=== PATIENT | male | born 1935 | race Caucasian/White ===

== ENCOUNTER 2022-05-16 10:11 | Inpatient (IN) | payer MEDICARE ==
[~2022-05-16] VITALS: Ht 165.1 cm; Wt 59.2 kg
[2022-05-16] MEDS ORDERED: SODIUM CHLORIDE 0.9% 1000ML 1,000 ML IV STA (11:13)
[2022-05-16 11:30] LABS: BASOPHILS % 0.2 % (0.0-1.0); HEMATOCRIT 40.1 % (38.2-49.6); HEMOGLOBIN 12.2 g/dL (14.0-18.0); LYMPHOCYTES # (AUTO) 0.5 (1.0-3.2); LYMPHOCYTES % 5.2 % (18.0-39.1); MEAN CORPUSCULAR HEMOGLOBIN 30.5 pg (28-32); MEAN CORPUSCULAR HGB CONC 30.4 g/dL (31-35); MEAN CORPUSCULAR VOLUME 100.3 fL (81-99); MONOCYTES # (AUTO) 0.4 (0.2-0.8); MONOCYTES % 3.5 % (4.4-11.3); NEUTROPHILS # (AUTO) 9.3 (2.1-6.9); NEUTROPHILS % 90.8 % (38.7-80.0); PLATELET COUNT 349 x10e3/uL (140-360); RED CELL DISTRIBUTION WIDTH 13.4 % (11.7-14.4)
[2022-05-16 11:37] LABS: INR 1.09; PROTHROMBIN TIME 15.1 seconds (11.9-14.5)
[2022-05-16 11:46] LABS: ALBUMIN 3.5 g/dL (3.5-5.0); ALBUMIN/GLOBULIN RATIO 0.7 (0.8-2.0); ANION GAP 22.7 mmol/L (8-16); CALCIUM 9.7 mg/dL (8.4-10.2); CREATININE, SERUM 5.57 mg/dL (0.72-1.25); MAGNESIUM 2.8 MG/DL (1.3-2.1); POTASSIUM 4.7 mmol/L (3.5-5.1)
[2022-05-16 12:00] LABS: CLARITY,URINE TURBID (CLEAR); COLOR,URINE YELLOW (YELLOW); LEUKOCYTE ESTERASE ,URINE NEGATIVE (NEGATIVE); NITRITE,URINE NEGATIVE (NEGATIVE); PROTEIN,URINE DIPSTICK 2+ (NEGATIVE)
[2022-05-16] MEDS ORDERED: SODIUM CHLORIDE 0.9% 1000ML 1,000 ML IV SCH (12:00)
[2022-05-16] MEDS ORDERED: ACETAMINOPHEN 650 MG SUPP PR ONE (12:00)
[2022-05-16] MEDS ORDERED: ACETAMINOPHEN 325 MG TAB PO ONE ×2 (12:00)
[2022-05-16 12:01] LABS: KETONES,URINE TRACE (NEGATIVE); URINE UROBILINOGEN 0.2 mg/dL (0.2 - 1)
[2022-05-16 12:15] LABS: CREATINE KINASE MB 1.9 ng/mL (0-5.0)
[2022-05-16 12:22] LABS: BACTERIA,URINE MANY /HPF; EPITHELIAL CELLS,URINE FEW /LPF; RBC,URINE >50 /HPF (0-5); WBC,URINE (MAN) 0-5 /HPF (0-5)
[2022-05-16] MEDS ORDERED: DEXTROSE 5% 1,000 ML IV SCH (13:15)
[2022-05-16] MEDS ORDERED: ONDANSETRON HCL INJ 2MG/ML 2ML 2 MG/ML VIAL IV PRN (13:15)
[2022-05-16] MEDS ORDERED: LIDOCAINE HCL 1% LOCAL INJ 20 ML VIAL ONE (14:12)
[2022-05-16] MEDS ORDERED: HEPARIN SOD (PORCINE) 1000 UNIT/ML SDV ONE (15:40)
[2022-05-16] MEDS ORDERED: DEXTROSE 50% SYRINGE 50 ML IV PRN (15:45)
[2022-05-16] MEDS ORDERED: SODIUM CHLORIDE 0.9% 1000ML 2,000 ML IV PRN (16:30)
[2022-05-16] MEDS ORDERED: MANNITOL 25% 12.5GM/50 ML VIAL IV PRN (16:30)
[2022-05-16] MEDS ORDERED: HEPARIN SOD (PORCINE) 1000 UNIT/ML SDV IV PRN (16:30)
[2022-05-16] MEDS ORDERED: INSULIN REGULAR, HUMAN 100 UNIT/1 ML SQ SCH (16:30)
[2022-05-16 18:15] VITALS: BP 140/84
[2022-05-16 18:43] LABS: CREATINE KINASE MB 4.5 ng/mL (0-5.0)
[2022-05-16 20:00] VITALS: BP 107/70
[2022-05-16] MEDS ORDERED: CLOPIDOGREL75 MG PO (20:41)
[2022-05-16] MEDS ORDERED: LIPITOR20 MG PO (20:41)
[2022-05-16 21:00] VITALS: BP 107/70
[2022-05-16] MEDS ORDERED: SODIUM CHLORIDE 0.9% 250ML 250 ML ONE (22:44)
[2022-05-17] VITALS (8 sets, daily range): BP systolic 108–134; BP diastolic 57–82
[2022-05-17 06:02] LABS: BASOPHILS % 0.2 % (0.0-1.0); EOSINOPHILS % 0.2 % (0.0-6.0); HEMATOCRIT 33.7 % (38.2-49.6); HEMOGLOBIN 10.9 g/dL (14.0-18.0); LYMPHOCYTES # (AUTO) 0.7 (1.0-3.2); LYMPHOCYTES % 5.4 % (18.0-39.1); MEAN CORPUSCULAR HEMOGLOBIN 30.7 pg (28-32); MEAN CORPUSCULAR HGB CONC 32.3 g/dL (31-35); MEAN CORPUSCULAR VOLUME 94.9 fL (81-99); MONOCYTES # (AUTO) 0.3 (0.2-0.8); MONOCYTES % 2.3 % (4.4-11.3); NEUTROPHILS # (AUTO) 11.6 (2.1-6.9); NEUTROPHILS % 91.3 % (38.7-80.0); PLATELET COUNT 293 x10e3/uL (140-360); RED BLOOD COUNT 3.55 x10e6/uL (4.3-5.7); RED CELL DISTRIBUTION WIDTH 13.3 % (11.7-14.4)
[2022-05-17 06:39] LABS: ALBUMIN 2.9 g/dL (3.5-5.0); ALBUMIN/GLOBULIN RATIO 0.8 (0.8-2.0); ANION GAP 20.4 mmol/L (8-16); CALCIUM 8.5 mg/dL (8.4-10.2); CREATININE, SERUM 3.67 mg/dL (0.72-1.25); POTASSIUM 4.4 mmol/L (3.5-5.1)
[2022-05-17 07:07] LABS: CREATINE KINASE MB 5.6 ng/mL (0-5.0)
[2022-05-17 07:23] LABS: CHOL/HDL RATIO 3.6 (3.9-4.7)
[2022-05-17] MEDS ORDERED: HEPARIN SOD (PORCINE) 1000 UNIT/ML SDV IV PRN (09:15)
[2022-05-17] MEDS ORDERED: DEXTROSE 5% 2,000 ML IV PRN (09:15)
[2022-05-17] MEDS ORDERED: SODIUM CHLORIDE 0.9% 500ML 500 ML ONE (15:57)
[2022-05-17] MEDS: DEXTROSE 5% 1,000 ML IV SCH (18:02)
[2022-05-18] VITALS (9 sets, daily range): BP systolic 94–115; BP diastolic 48–71
[2022-05-18 06:30] LABS: BASOPHILS % 0.1 % (0.0-1.0); EOSINOPHILS % 0.2 % (0.0-6.0); HEMATOCRIT 31.6 % (38.2-49.6); HEMOGLOBIN 9.9 g/dL (14.0-18.0); LYMPHOCYTES # (AUTO) 0.8 (1.0-3.2); LYMPHOCYTES % 5.3 % (18.0-39.1); MEAN CORPUSCULAR HEMOGLOBIN 30.6 pg (28-32); MEAN CORPUSCULAR HGB CONC 31.3 g/dL (31-35); MEAN CORPUSCULAR VOLUME 97.5 fL (81-99); MONOCYTES # (AUTO) 0.4 (0.2-0.8); MONOCYTES % 2.7 % (4.4-11.3); NEUTROPHILS # (AUTO) 12.9 (2.1-6.9); NEUTROPHILS % 91.1 % (38.7-80.0); PLATELET COUNT 254 x10e3/uL (140-360); RED BLOOD COUNT 3.24 x10e6/uL (4.3-5.7); RED CELL DISTRIBUTION WIDTH 13.1 % (11.7-14.4)
[2022-05-18 06:50] LABS: ALBUMIN 2.6 g/dL (3.5-5.0); ALBUMIN/GLOBULIN RATIO 0.8 (0.8-2.0); ANION GAP 13.9 mmol/L (8-16); CALCIUM 8.2 mg/dL (8.4-10.2); CREATININE, SERUM 3.1 mg/dL (0.72-1.25); POTASSIUM 3.9 mmol/L (3.5-5.1)
[2022-05-18] MEDS: ALBUTEROL/IPRATROPIUM 3 ML NEB NEB PRN (20:15)
[2022-05-18] MEDS: ALBUTEROL/IPRATROPIUM 3 ML NEB NEB SCH (23:50)
[2022-05-19] VITALS (7 sets, daily range): BP systolic 113–130; BP diastolic 58–71
[2022-05-19] MEDS: DEXTROSE 5% 1,000 ML IV SCH (01:14)
[2022-05-19 06:31] LABS: EOSINOPHILS # (AUTO) 0.1 (0.0-0.4); EOSINOPHILS % 0.5 % (0.0-6.0); HEMATOCRIT 30.2 % (38.2-49.6); HEMOGLOBIN 9.5 g/dL (14.0-18.0); LYMPHOCYTES # (AUTO) 0.5 (1.0-3.2); LYMPHOCYTES % 4.5 % (18.0-39.1); MEAN CORPUSCULAR HEMOGLOBIN 30.8 pg (28-32); MEAN CORPUSCULAR HGB CONC 31.5 g/dL (31-35); MEAN CORPUSCULAR VOLUME 98.1 fL (81-99); MONOCYTES # (AUTO) 0.4 (0.2-0.8); MONOCYTES % 3.8 % (4.4-11.3); NEUTROPHILS # (AUTO) 10.6 (2.1-6.9); NEUTROPHILS % 90.7 % (38.7-80.0); PLATELET COUNT 234 x10e3/uL (140-360); RED BLOOD COUNT 3.08 x10e6/uL (4.3-5.7)
[2022-05-19 06:52] LABS: ANION GAP 16.8 mmol/L (8-16); CREATININE, SERUM 3.24 mg/dL (0.72-1.25); POTASSIUM 3.8 mmol/L (3.5-5.1)
[2022-05-19] MEDS: ALBUTEROL/IPRATROPIUM 3 ML NEB NEB PRN (09:20)
[2022-05-19] MEDS: BUMETANIDE INJ 0.25MG/ML 4ML VIAL IV ONE ×2 (11:21→16:33)
[2022-05-19] MEDS ORDERED: BUMETANIDE INJ 0.25MG/ML 4ML VIAL IV ONE (11:45)
[2022-05-19] MEDS ORDERED: ALBUTEROL/IPRATROPIUM 3 ML NEB NEB PRN (12:15)
[2022-05-19] MEDS: ALBUTEROL/IPRATROPIUM 3 ML NEB NEB SCH ×2 (15:10→19:15)
[2022-05-20] VITALS (8 sets, daily range): BP systolic 99–145; BP diastolic 50–73
[2022-05-20] MEDS: ALBUTEROL/IPRATROPIUM 3 ML NEB NEB SCH ×3 (02:35→10:10)
[2022-05-20 06:34] LABS: BASOPHILS % 0.3 % (0.0-1.0); EOSINOPHILS % 0.3 % (0.0-6.0); HEMOGLOBIN 10.3 g/dL (14.0-18.0); LYMPHOCYTES # (AUTO) 0.4 (1.0-3.2); LYMPHOCYTES % 2.2 % (18.0-39.1); MEAN CORPUSCULAR HEMOGLOBIN 30.8 pg (28-32); MEAN CORPUSCULAR HGB CONC 32.2 g/dL (31-35); MEAN CORPUSCULAR VOLUME 95.8 fL (81-99); MONOCYTES # (AUTO) 0.6 (0.2-0.8); MONOCYTES % 3.5 % (4.4-11.3); NEUTROPHILS # (AUTO) 14.8 (2.1-6.9); NEUTROPHILS % 92.8 % (38.7-80.0); PLATELET COUNT 247 x10e3/uL (140-360); RED BLOOD COUNT 3.34 x10e6/uL (4.3-5.7); RED CELL DISTRIBUTION WIDTH 12.6 % (11.7-14.4)
[2022-05-20 06:53] LABS: ALBUMIN 2.7 g/dL (3.5-5.0); ALBUMIN/GLOBULIN RATIO 0.7 (0.8-2.0); ANION GAP 27.2 mmol/L (8-16); CALCIUM 8.4 mg/dL (8.4-10.2); CREATININE, SERUM 4.71 mg/dL (0.72-1.25); POTASSIUM 4.2 mmol/L (3.5-5.1)
[2022-05-20] MEDS ORDERED: HEPARIN SOD (PORCINE) 1000 UNIT/ML SDV IV PRN ×2 (10:00)
[2022-05-20] MEDS ORDERED: SODIUM CHLORIDE 0.9% 1000ML 2,000 ML IV PRN (10:00)
[2022-05-20] MEDS: ACETAMINOPHEN 325 MG TAB PO PRN (10:13)
[2022-05-20 14:20] LABS: ALBUMIN 2.2 g/dL (3.5-5.0); BILIRUBIN,DIRECT 0.5 mg/dL (0.0-0.5)
[2022-05-20] MEDS ORDERED: ALBUTEROL SULF 0.083% NEB SOLN 3 ML NEB NEB PRN (14:30)
[2022-05-20] MEDS: SODIUM BICARBONATE 650 MG TAB PO SCH ×2 (16:08→20:50)
[2022-05-20] MEDS: IPRATROPIUM BROMIDE 0.02% 2.5 ML NEB NEB SCH ×2 (20:40→23:08)
[2022-05-21 01:16] VITALS: BP 108/56
[2022-05-21] MEDS: IPRATROPIUM BROMIDE 0.02% 2.5 ML NEB NEB SCH ×6 (01:16→22:00)
[2022-05-21 04:51] VITALS: BP 102/42
[2022-05-21 08:00] VITALS: BP_SYST 128; BP_SYST 148; BP_DIAS 70; BP_DIAS 85
[2022-05-21 10:42] LABS: BASOPHILS % 0.1 % (0.0-1.0); EOSINOPHILS # (AUTO) 0.1 (0.0-0.4); EOSINOPHILS % 0.4 % (0.0-6.0); HEMATOCRIT 28.7 % (38.2-49.6); HEMOGLOBIN 8.7 g/dL (14.0-18.0); LYMPHOCYTES # (AUTO) 0.5 (1.0-3.2); LYMPHOCYTES % 2.9 % (18.0-39.1); MEAN CORPUSCULAR HEMOGLOBIN 30.4 pg (28-32); MEAN CORPUSCULAR HGB CONC 30.3 g/dL (31-35); MEAN CORPUSCULAR VOLUME 100.3 fL (81-99); MONOCYTES # (AUTO) 0.6 (0.2-0.8); MONOCYTES % 3.5 % (4.4-11.3); NEUTROPHILS # (AUTO) 16.5 (2.1-6.9); NEUTROPHILS % 92.4 % (38.7-80.0); PLATELET COUNT 284 x10e3/uL (140-360); RED BLOOD COUNT 2.86 x10e6/uL (4.3-5.7)
[2022-05-21 11:07] LABS: ALBUMIN 2.2 g/dL (3.5-5.0); ALBUMIN/GLOBULIN RATIO 0.6 (0.8-2.0); CALCIUM 7.9 mg/dL (8.4-10.2); CREATININE, SERUM 4.13 mg/dL (0.72-1.25)
[2022-05-21] MEDS: SODIUM BICARBONATE 650 MG TAB PO SCH ×3 (11:26→20:39)
[2022-05-21 12:39] VITALS: BP 141/66
[2022-05-21 16:00] VITALS: BP 113/64
[2022-05-21 19:20] VITALS: BP 147/67
[2022-05-22] VITALS (7 sets, daily range): BP systolic 123–155; BP diastolic 66–78
[2022-05-22] MEDS: IPRATROPIUM BROMIDE 0.02% 2.5 ML NEB NEB SCH ×5 (06:48→22:00)
[2022-05-22] MEDS: SODIUM BICARBONATE 650 MG TAB PO SCH ×3 (09:00→20:48)
[2022-05-22] MEDS: ACETAMINOPHEN 325 MG TAB PO PRN (18:33)
[2022-05-23] VITALS: BP 130/72
[2022-05-23 06:21] LABS: ALBUMIN 2.5 g/dL (3.5-5.0); ALBUMIN/GLOBULIN RATIO 0.7 (0.8-2.0); ANION GAP 28.9 mmol/L (8-16); CALCIUM 8.3 mg/dL (8.4-10.2); CREATININE, SERUM 6.6 mg/dL (0.72-1.25); POTASSIUM 3.9 mmol/L (3.5-5.1)
[2022-05-23] MEDS: IPRATROPIUM BROMIDE 0.02% 2.5 ML NEB NEB SCH ×4 (06:33→19:10)
[2022-05-23 08:30] VITALS: BP 130/72
[2022-05-23] MEDS: SODIUM BICARBONATE 650 MG TAB PO SCH ×3 (08:33→15:00)
[2022-05-23 08:36] VITALS: BP 153/83
[2022-05-23] MEDS ORDERED: Morphine 2mg Syringe 2 MG/ML SYR IV PRN (11:00)
[2022-05-23] MEDS ORDERED: DEXTROSE 5% 1,000 ML IV SCH (11:45)
[2022-05-23 12:57] VITALS: BP 139/75
[2022-05-23 16:10] VITALS: BP 139/72
== END 2022-05-23 20:39 | disposition hospice, inpatient (51) | DRG 871 ==
LOC: ER 10:44 → ERHOLD 13:08 → MED/SURG2 15:50
PROVIDERS: ADMIT Internal Medicine; ATTEND Internal Medicine
PROC: 02HV33Z Insertion of Infusion Device into Superior Vena Cava, Percutaneous Approach (ICD-10-PCS; principal; 2022-05-16)
PROC: 5A1D70Z Performance of Urinary Filtration, Intermittent, Less than 6 Hours Per Day (ICD-10-PCS; 2022-05-16)
DX: A41.9 Sepsis, unspecified organism (principal); J69.0 Pneumonitis due to inhalation of food and vomit; N17.0 Acute kidney failure with tubular necrosis; N18.6 End stage renal disease; N17.9 Acute kidney failure, unspecified; I69.354 Hemiplegia and hemiparesis following cerebral infarction affecting left non-dominant side; N39.0 Urinary tract infection, site not specified; I12.0 Hypertensive chronic kidney disease with stage 5 chronic kidney disease or end stage renal disease; M62.82 Rhabdomyolysis; E87.0 Hyperosmolality and hypernatremia; S37.39XA Other injury of urethra, initial encounter; R65.20 Severe sepsis without septic shock; I10 Essential (primary) hypertension; R31.9 Hematuria, unspecified; N28.1 Cyst of kidney, acquired; Z99.2 Dependence on renal dialysis; N32.81 Overactive bladder; N21.0 Calculus in bladder; R94.5 Abnormal results of liver function studies; Z66 Do not resuscitate; E86.0 Dehydration; Z20.822 Contact with and (suspected) exposure to COVID-19; E87.8 Other disorders of electrolyte and fluid balance, not elsewhere classified; E78.00 Pure hypercholesterolemia, unspecified; X58.XXXA Exposure to other specified factors, initial encounter; N31.8 Other neuromuscular dysfunction of bladder; N39.498 Other specified urinary incontinence; I69.398 Other sequelae of cerebral infarction
CPT/HCPCS: 36415; 36556; 51700; 71045; 74178; 74230; 74470; 76700; 76857; 76937; 77001; 80048; 80053; 80061; 80076; 81001; 82550; 82553; 82948; 83036; 83605; 83735; 83880; 84484; 84550; 85025; 85610; 85730; 86704; 86706; 87040; 87086; 87340; 93005; 93306; 94799; 99251; 99284; C1752; C1769; J0456; J0696; J1644; J2001; J2150; J2270; J2543; J7030; J7040; J7050; J7070